=== PATIENT | female | born 1930 | race Caucasian/White ===

== ENCOUNTER → 2016-09-09 | Outpatient (CLI) | payer MEDICARE, OTHER ==
--- NOTE | 2016-09-10 03:23 | HKNOTE ---
DATE OF SERVICE: 09/09/2016 The patient comes in for preoperative evaluation. She is scheduled to have a right total knee repla cement on 09/14/2016. She had been cleared for surgery by Dr. Екатерина Larose. The patient is on E liquis. Dr. Larose has indicated that the Eliquis should be discontinued 3 days prior to surgery, b ut otherwise she is cleared for surgery. The patient has not given any blood for autotransfusion. She understands the risks associated with using hospital blood. She is agreeable to using hospital blood if needed. The patient had a hip replacement performed by me about 20 years ago. She comes in with her son. N umerous questions were asked and answered. Dictated By: GORDON HERMAN/THIERNO Conf#: [id number] DID#: [id number]
== END | disposition home or self-care (01) ==
LOC: HKI 13:18
DX: Z01.818 Encounter for other preprocedural examination (principal)

== ENCOUNTER → 2016-09-17 15:25 | Inpatient (IN) | payer MEDICARE, OTHER ==
[2016-09-14] VITALS (34 sets, daily range): BP systolic 95–128; BP diastolic 50–82; PULSE 50–87; RESP 13–28; Ht 175.3 cm; Wt 67.0 kg
--- NOTE | 2016-09-14 06:53 | HPN ---
Date/Time of Note Date/Time of Note DATE: 09/14/16 TIME: 06:50 Interval H&P Admission Note Pt. seen H&P reviewed: Systems changes noted below Patient Primary Medical Doctor called into outpatient office yesterday evening with Positive urine culture results. Dr. Blank made aware and he has decided to continue with surgery as well as instructions to start patient on broad spectrum antibiotic. Spoke with the patient's COSTUME SHOP COORDINATOR yesterday and her Nurse Practitioner Andres at [facility] confirms Rx for Bactrim DS and Dr. Blank aware. Abx will also be provided today. Anesthesiologist Dr. Mercer also aware of UTI. We will proceed with TKA per Dr. Blank. LAINA VINSON PA-C Sep 14, 2016 06:53
--- NOTE | 2016-09-14 12:04 | PDOCDIS ---
Discharge Instructions DIAGNOSIS Discharge Diagnosis Status post right total knee replacement CONDITION Patient Condition: Stable HOME CARE INSTRUCTIONS: Diet Instructions: Regular ACTIVITY: Activity Restrictions: Slowly Increase Activity Rest between Activity Avoid heavy lifting No Sexual Activity Do not Drive Do not operate Machinery Do not operate Power Tool Avoid Heavy Housework Keep Limb Elevated (While at rest with ice modalities.) Weight Bearing (As tolerated with front-wheeled walker.) Bathing Restrictions: Shower (Using Tegaderm with pad. Apply prior to shower. Let air dry after shower and dab dry. May remove after shower. Repeat the steps each day until kinsey are removed around 10 days postoperatively.) FOLLOW UP/APPOINTMENTS Follow-up Plan October 05, 2016 at 2:15 PM in outpatient clinic. LAINA VINSON PA-C Sep 14, 2016 12:04
[2016-09-14] MEDS: ACETAMINOPHEN 1000MG/100ML IV 100 ML IVPB SCH ×2 (12:41→20:36)
[2016-09-14] MEDS: CEFAZOLIN 1 GM/50 ML (PMX) 50 ML IVPB SCH ×2 (12:42→20:58)
--- NOTE | 2016-09-14 15:09 | RADRPT ---
PROCEDURE: XR right knee CLINICAL INDICATION: Right knee intraoperative evaluation TECHNIQUE: 2 images of the right knee COMPARISON: Radiographs of the right knee April 23, 2014 FINDINGS: Intraoperative images show right knee total arthroplasty with long tibial stem in progress. There i s soft tissue swelling and gas. IMPRESSION: Right knee total arthroplasty in progress. RPTAT: UU .Sanford Hay MD, MD Date Time Electronically viewed and signed by .Sanford Hay MD, on 09/14/2016 15:09 .K/
--- NOTE | 2016-09-14 15:09 | RADRPT ---
PROCEDURE: XR Knee. CLINICAL INDICATION: Postoperative evaluation right knee TECHNIQUE: 3 images of the right knee are available for review. COMPARISON: None available FINDINGS: There is a total right knee arthroplasty in anatomic alignment. There is no acute fracture. Ther e is anterior soft tissue swelling and gas with anterior kinsey. There is an anterior drain. IMPRESSION: Recent total right knee arthroplasty as above. RPTAT: UU .Sanford Hay MD, MD Date Time Electronically viewed and signed by .Sanford Hay MD, MD on 09/14/2016 15:08 .K/
[2016-09-14] MEDS: DEXTROSE 5%-LR 1,000 ML IV SCH (15:28)
[2016-09-14] MEDS: ONDANSETRON 4 MG INJ IV SCH (18:00)
--- NOTE | 2016-09-14 18:18 | CONS ---
Date/Time of Note Date/Time of Note DATE: 09/14/16 TIME: 18:04 Assessment/Plan Assessment/Plan Problems: (1) Essential (primary) hypertension Status: Chronic Comment: Cont. losartan, metoprolol, amlodipine. Monitor BP while in house. (2) Hyperlipidemia Status: Chronic Comment: Cont. statin (3) Personal history of pulmonary embolism Status: Chronic Comment: D/w ortho when it is appropriate to resume anticoagulation (4) Urge incontinence Status: Chronic Comment: Resume oxybutynin once pt. has spencer d/c'ed and able to urinate on her own (5) Dependent edema Status: Chronic Comment: Resume furosemide tomorrow (6) Osteoarthritis of right knee Status: Resolved Comment: Defer to primary team (7) Aftercare following right knee joint replacement surgery Status: Acute Comment: Doing well POD#0. Defer to primary team for management of pain and PT. Will monitor for medical issues should they arise. Consultation Date/Type/Reason Admit Date/Time Sep 14, 2016 at 05:22 Date of Consultation: Sep 14, 2016 Type of Consultation: Medicine Reason for Consultation Medical Management Referring Provider: GORDON ALEMAN MD Hx of Present Illness Pt. in [facility] until several years ago when she went to ortho to have right knee evaluated for being out of alignment. Foot pointed one way and knee pointed the other. Pt. diagnosed w/ meniscal tear. Had arthroscopy for this but problem did not entirely fix. [place] that surgeon was trying to get two surgeries out of her. Changed insurance to be able to see Dr. Aleman who had done her hip years before w/ success. Began seeing him 2 y. ago. He has followed her for a time. Pt. has not been having pain. However, 1 year ago had a fall in a parking lot and injured her knee. Hospitalized briefly. Subsequently w/ back pain on d/c but XR were negative. Sent home but the next day had SOB and was found to have pulmonary embolus. Has been on anti- coagulant ever since. Now as of more recently knee has alignment has bothered her more. She felt she would not be in as good health as she is in now. Conferred w/ Dr. Aleman who agreed to perform R TKA today. Pt. doing well POD#0. Constitutional: improved, no complaints Eyes: no complaints ENT: no complaints Respiratory: no complaints Cardiovascular: no complaints Gastrointestinal: No decreased appetite (hungry) Genitourinary: no complaints Musculoskeletal: bone/joint pain (minimal) Neurologic: no complaints Psychological: nl mood/affect, no complaints Past Medical History Medical History: diverticulitis, high cholesterol, hypertension, other ( pulmonary embolus) Past Surgical History Past Surgical Hx: bowel resection (sigmoid for ), other (R NABIL, R knee arthroscopy, tonsillectomy, ) Family History Significant Family History: no pertinent family hx (denies) Social History b. [place], college grad w/ subsequent masters in education, ret'd hs teacher, , 3 children Alcohol Use: rarely Smoking Status: Former smoker (10 years, social, quit 56 y. ago) Drug Use: none Exam/Review of Systems Vital Signs Vitals VS - Last 72 Hours, by Label Date Time Temp Pulse Resp B/P Pulse Ox O2 Delivery O2 Flow Rate FiO2 09/14/16 16:05 53 15 122/61 Nasal Cannula 2.0 09/14/16 15:35 50 15 114/65 Nasal Cannula 2.0 09/14/16 15:05 54 16 110/65 Nasal Cannula 2.0 09/14/16 14:50 15 105/74 Nasal Cannula 2.0 09/14/16 14:35 52 14 99/54 Nasal Cannula 2.0 09/14/16 14:20 97.5 53 21 119/54 Nasal Cannula 2.0 09/14/16 14:06 110/64 Nasal Cannula 3.0 09/14/16 13:59 52 21 104/52 93 Nasal Cannula 3.0 09/14/16 13:54 64 27 123/58 96 Nasal Cannula 3.0 09/14/16 13:49 54 13 101/56 97 Nasal Cannula 3.0 09/14/16 13:44 52 13 98/53 96 Nasal Cannula 3.0 09/14/16 13:39 56 13 95/52 97 Nasal Cannula 3.0 09/14/16 13:34 58 21 109/51 97 Nasal Cannula 3.0 09/14/16 13:29 54 16 115/50 95 Nasal Cannula 3.0 09/14/16 13:24 60 17 102/55 97 Nasal Cannula 3.0 09/14/16 13:19 52 14 102/51 99 Nasal Cannula 3.0 09/14/16 13:14 54 15 99/51 96 Nasal Cannula 3.0 09/14/16 13:09 68 23 102/55 96 Nasal Cannula 3.0 09/14/16 13:04 50 19 108/63 96 Nasal Cannula 3.0 09/14/16 12:59 64 22 112/59 96 Nasal Cannula 3.0 09/14/16 12:54 74 27 113/50 96 Nasal Cannula 09/14/16 12:49 74 28 103/71 96 Nasal Cannula 09/14/16 12:44 72 24 100/82 97 Nasal Cannula 09/14/16 12:43 100/57 Nasal Cannula 09/14/16 12:39 68 20 117/57 94 Nasal Cannula 09/14/16 12:34 62 19 96/54 97 Nasal Cannula 09/14/16 12:29 72 17 110/69 96 Nasal Cannula 09/14/16 12:24 66 15 100/54 92 Nasal Cannula 09/14/16 12:19 110/66 100 Mask 09/14/16 12:18 110/66 100 Mask 09/14/16 12:03 98.6 09/14/16 11:56 98.0 81 18 103/54 100 Mask 09/14/16 06:00 97.9 87 18 128/72 98 Room Air Vital Signs Date Time Temp Pulse Resp B/P Pulse Ox O2 Delivery O2 Flow Rate FiO2 09/14/16 16:05 53 15 122/61 Nasal Cannula 2.0 09/14/16 14:20 97.5 09/14/16 13:59 93 Exam Constitutional: alert, oriented, well developed Psych: nl mood/affect, no complaints Eyes: EOMI, PERRL, nl conjunctiva, nl lids, nl sclera ENMT: mucosa pink and moist, nl external ears & nose Neck: non-tender, supple, No bruits, No masses, No thyromegaly Respiratory: clear to auscultation, normal air movement Cardiovascular: nl pulses, regular rate and rhythm, No edema, No murmurs/extra sounds, No rub Gastrointestinal: bowel sounds, nl liver, spleen, non-tender, soft, No mass, No rebound or guarding Musculoskeletal: nl extremities to inspection Extremities: normal pulses, No clubbing, No cyanosis, No edema Neurological: TIRE REPAIRER II-XII intact, nl mental status, nl speech, nl strength Medications Medications Current Medications Sodium Chloride/ Tranexamic Acid INTRA-OP IRR ; Start 09/14/16 at 06:00 Ropivacaine 60 ml/ Morphine Sulfate 4 mg/Clonidine 100 mcg/Ketorolac Tromethamine 30 mg/Vancomycin HCl 500 mg/Sodium Chloride 50 ml INTRA-OP INJ ; Start 09/14/16 at 06:00 Dextrose/Lactated Ringer's (D5-Lr) 1,000 ml @ 80 mls/hr [id number] IV Last administered on 09/14/16 15:28; Admin Dose 80 MLS/HR; Start 09/14/16 at 11:53; Stop 09/15/16 at 09:00 Hydromorphone HCl (Dilaudid TEST DEVELOPER) Q4PCA PRN IV SEVERE PAIN 8-10; Start at 12:00; Stop 09/15/16 at 11:59 Meperidine HCl (Demerol TEST DEVELOPER) Q4PCA PRN IV SEVERE PAIN 8-10; Start 09/14/16 at 12:00; Stop 09/15/16 at 09:00 Oxycodone HCl (Roxicodone) 20 mg Q3H PRN PO PAIN LEVEL 8-10; Start 09/15/16 at 09:00 Oxycodone HCl (Roxicodone) 10 mg Q3H PRN PO PAIN LEVEL 4-7; Start 09/15/16 at 09:00 Oxycodone HCl 5 mg 5 mg Q3H PRN PO PAIN LEVEL 1-3; Start 09/15/16 at 09:00 Acetaminophen (Ofirmev 1000mg/ 100ml Iv) 100 ml @ 400 mls/hr Q8H IVPB Last administered on 09/14/16 12:41; Admin Dose 400 MLS/HR; Start 09/14/16 at 12:00 ; Stop 09/16/16 at 04:14 Zolpidem Tartrate (Ambien) 5 mg HS PRN PO INSOMNIA; Start 09/14/16 at 12:00 Ondansetron HCl 4 mg 4 mg Q6H IV ; Start 09/14/16 at 12:00; Stop 09/15/16 at 06: 01 Cefazolin Sodium (Ancef 1 Gm/50 ml (Pmx)) 50 ml @ 100 mls/hr Q8H IVPB Last administered on 6/27/17at 12:42; Admin Dose 100 MLS/HR; Start 09/14/16 at 12:00 ; Stop 09/15/16 at 04:29 Miscellaneous Information (Note) NOTE XX ; Start 09/14/16 at 12:00 Aspirin (Ecotrin) 325 mg BID PO ; Start 09/15/16 at 09:00 Celecoxib (Celebrex) 200 mg BID PO ; Start 09/15/16 at 09:00 Dexamethasone (Decadron) 4 mg DAILY@07 IV ; Start 09/15/16 at 07:00; Stop at 06:59 Pantoprazole (Protonix Tab) 40 mg DAILY@06 PO ; Start 09/16/16 at 06:00 Docusate Sodium/ Ferrous Fumarate (Jeffrey-Sequels) 1 tab BID PO ; Start 09/15/16 at 09:00 Docusate Sodium (Colace) 200 mg BID PO ; Start 09/15/16 at 09:00; Stop 09/18/16 at 08:59 Simethicone (Mylicon) 80 mg TID PRN PO DISTENSION/GAS/BLOATING; Start 09/14/16 at 12:00 Senna/Docusate Sodium (Senokot-S) 2 tab BID PRN PO CONSTIPATION; Start at 12:00 Magnesium Hydroxide (Milk Of Mag) 30 ml HS PRN PO CONSTIPATION; Start 09/14/16 at 12:00 Bisacodyl (Dulcolax Supp) 10 mg DAILY PRN MA CONSTIPATION; Start 09/14/16 at 12 :00 Sodium Biphosphate/ Sodium Phosphate (Fleet Enema) 133 ml DAILY PRN MA CONSTIPATION; Start 09/14/16 at 12:00 Diphenhydramine HCl (Benadryl) 25 mg Q4H PRN IM ITCHING OR RASH; Start at 12:00 Ketorolac Tromethamine (Toradol) 15 mg DAILY@06 PRN INJ ADMINSTER BY SURGEON ONLY; Start 09/15/16 at 06:00; Stop 09/19/16 at 05:59 Bupivacaine HCl/ Epinephrine Bitart (Marcaine 0.25%/ Epi (Sdv) 30 ml) 20 ml DAILY@06 PRN INJ ADMINSTER BY SURGEON ONLY; Start 09/15/16 at 06:00; Stop at 05:59 Naloxone HCl (Narcan) 0.2 mg Q2M PRN IV DECREASED REPIRATORY RATE; Start at 12:00 Amlodipine Besylate (Norvasc) 5 mg DAILY PO ; Start 09/15/16 at 09:00 Apixaban (Eliquis) 2.5 mg BID PO ; Start 09/15/16 at 09:00 Docusate Sodium (Colace) 100 mg DAILY PO ; Start 09/15/16 at 09:00 Folic Acid (Folic Acid) 1 mg DAILY PO ; Start 09/15/16 at 09:00 Furosemide (Lasix) 20 mg DAILY PO ; Start 09/15/16 at 09:00 Losartan Potassium (Cozaar) 50 mg DAILY PO ; Start 09/15/16 at 09:00 Metoprolol Tartrate (Lopressor) 50 mg DAILY PO ; Start 09/15/16 at 09:00 Polyethylene Glycol (Miralax) 17 gm DAILY PO ; Start 09/15/16 at 09:00 Cholecalciferol (Vitamin D) 2,000 unit DAILY PO ; Start 09/15/16 at 09:00 Oxybutynin Chloride (Ditropan) 5 mg BID PO ; Start 09/15/16 at 09:00 Atorvastatin Calcium (Lipitor) 40 mg HS PO ; Start 09/14/16 at 21:00 ISAIAH KENNEDY MD Sep 14, 2016 18:15
[2016-09-14] MEDS: ATORVASTATIN 40 MG TAB PO SCH (20:58)
[2016-09-15] MEDS: DEXTROSE 5%-LR 1,000 ML IV SCH (00:06)
[2016-09-15] MEDS: ACETAMINOPHEN 1000MG/100ML IV 100 ML IVPB SCH ×3 (04:08→21:21)
[2016-09-15] MEDS: CEFAZOLIN 1 GM/50 ML (PMX) 50 ML IVPB SCH (05:10)
[2016-09-15] MEDS: ONDANSETRON 4 MG INJ IV SCH ×2 (05:14)
[2016-09-15 05:25] LABS: ADD SCAN DIFF NO
[2016-09-15 05:33] LABS: BASOPHILS % 0.1 % (0.0-2.0); EOSINOPHILS % 0.1 % (0.0-7.0); HEMATOCRIT 30.4 % (37.0-47.0); HEMOGLOBIN 9.5 g/dl (12.0-16.0); LYMPHOCYTES # 0.7 10^3/ul (0.8-2.9); MEAN CORPUSCULAR HEMOGLOBIN 27.3 pg (29.0-33.0); MEAN CORPUSCULAR HGB CONC 31.3 g/dl (32.0-37.0); MEAN CORPUSCULAR VOLUME 87.4 fl (82.0-101.0); MEAN PLATELET VOLUME 10.6 fl (7.4-10.4); MONOCYTE # 0.6 10^3/ul (0.3-0.9); MONOCYTES % 6.8 % (0.0-11.0); NEUTROPHIL # 6.9 10^3/ul (1.6-7.5); NEUTROPHILS % 83.4 % (39.0-77.0); PLATELET COUNT 162 10^3/UL (140-415); RED BLOOD COUNT 3.48 10^6/ul (4.20-5.40); RED CELL DISTRIBUTION WIDTH 15.9 % (11.5-14.5); WHITE BLOOD COUNT 8.2 10^3/ul (4.8-10.8)
[2016-09-15] MEDS: DEXAMETHASONE 4 MG/ML 1 ML INJ IV SCH (06:34)
--- NOTE | 2016-09-15 07:35 | PN ---
Date/Time of Note Date/Time of Note DATE: 09/15/16 TIME: 07:32 Assessment/Plan VTE Prophylaxis VTE Prophylaxis Intervention: SCD's, other (Aspirin 325 mg) Lines/Catheters IV Catheter Type (from Nrsg): Peripheral IV Al in Place (from Nrsg): Yes Assessment/Plan Assessment/Plan -Hemovac Removed Today -Pain Cocktail Given -Pain Meds as needed -Dress change performed today -OOB with PT -ASA/SCDs for DVT Prophylaxis -Patient was on Eliquis 2.5 mg twice daily prior to being inpatient in hospital. We will defer to gas station service attendant to determine whether anticoagulation therapy should be changed either back to Eliquis, heparin or alternative form of anticoagulation in regards to her current aspirin 325 mg dose twice a day. This was also communicated to the nurse on 4 W. -Continue monitoring with Internal Medicine -Patient Stable Subjective 24 Hr Interval Summary 86-year-old female postop day 1 status post right total knee replacement. Denies any pain to the right knee. Has yet to initiate physical therapy. No complaints at this time. Exam/Review of Systems Vital Signs Vitals Vital Signs Date Time Temp Pulse Resp B/P Pulse Ox O2 Delivery O2 Flow Rate FiO2 09/14/16 23:54 98.2 56 18 108/56 97 09/14/16 16:05 Nasal Cannula 2.0 Intake and Output 09/14/16 09/14/16 09/15/16 15:00 23:00 07:00 Intake Total 3214.4 ml 676.7 ml 1550 ml Output Total 950 ml 500 ml 1100 ml Balance 2264.4 ml 176.7 ml 450 ml Exam Free Text/Dictation -Hemovac: Intact 200 cc output -Pain Cocktail Drains: Intact -Incision: Clean, Dry and Intact without any redness or drainage -5/5 Tibialis Anterior, EHL Gastrocnemius/Soleus and Peroneals -Normal Sensation -Palpable DP/PT, Capillary Refill <2 secs -No Distal Edema -Negative Tawanna Sign/No calf pain -Toes Freely Movable Constitutional: alert, oriented, well developed Results Result Diagram: 09/15/16 0445 LAINA VINSON PA-C Sep 15, 2016 07:35
[2016-09-15 08:15] VITALS: BP 135/61; RESP 20
[2016-09-15] MEDS: ASPIRIN (EC) 325 MG TAB PO SCH ×2 (09:00→21:00)
[2016-09-15] MEDS: FOLIC ACID 1 MG TAB PO SCH (09:46)
[2016-09-15] MEDS: CHOLECALCIFEROL 2,000 UNIT CAP PO SCH (09:46)
[2016-09-15] MEDS: CELECOXIB 200 MG CAP PO SCH ×2 (09:46→21:23)
[2016-09-15] MEDS: DOCUSATE SODIUM 100 MG CAP PO SCH ×2 (09:46→21:23)
[2016-09-15] MEDS: AMLODIPINE 10 MG TAB PO SCH (09:47)
[2016-09-15] MEDS: FUROSEMIDE 20 MG TAB PO SCH (09:47)
[2016-09-15] MEDS: FERROUS FUMARATE (SR) TAB PO SCH ×2 (09:47→21:21)
[2016-09-15] MEDS: OXYBUTYNIN 5 MG TAB PO SCH ×2 (09:47→21:23)
[2016-09-15] MEDS: METOPROLOL 50 MG TAB PO SCH (09:48)
[2016-09-15] MEDS: POLYETHYLENE GLYCOL 17 GM PACKET PO SCH (09:48)
[2016-09-15] MEDS: LOSARTAN 50 MG TAB PO SCH (09:48)
[2016-09-15] MEDS: APIXABAN 5 MG TABLET PO SCH ×2 (14:06→21:24)
[2016-09-15 20:32] VITALS: BP 130/78; RESP 18
[2016-09-15] MEDS: ATORVASTATIN 40 MG TAB PO SCH (21:23)
--- NOTE | 2016-09-15 21:25 | CONS ---
Date/Time of Note Date/Time of Note DATE: 09/15/16 TIME: 21:19 Assessment/Plan Assessment/Plan Problems: (1) Atrial fibrillation Status: Chronic Comment: Pt. did not mention this yesterday and HR was regular on exam. However, today's exam this is apparent. Pt. admits h/o this rhythm. However, rate controlled and pt. already on Eliquis. No cardiology consult necessary. (2) Personal history of pulmonary embolism Status: Chronic Comment: D/w PMD who agrees cont. Eliquis (3) Essential (primary) hypertension Status: Chronic Comment: BP controlled. Cont. anti-hypertensives (4) Hyperlipidemia Status: Chronic Comment: Cont. statin (5) Urge incontinence Status: Chronic Comment: Cont. oxybutynin (6) Aftercare following right knee joint replacement surgery Status: Acute Comment: Doing well POD#1. Cont. PT and pain management. Will follow. Consultation Date/Type/Reason Admit Date/Time Sep 14, 2016 at 05:22 Initial Consult Date 09/14/16 Type of Consultation: Medicine Reason for Consultation Medical management Referring Provider: GORDON ALEMAN MD 24 HR Interval Summary Constitutional: improved, no complaints Detailed Summary Respiratory: no complaints Cardiovascular: no complaints Gastrointestinal: no complaints Genitourinary: no complaints Musculoskeletal: bone/joint pain (minimal) Neurologic: no complaints Psychological: anxiety (a little overwhelmed with all of the attention from different hospital services.) Exam/Review of Systems Vital Signs Vitals VS - Last 72 Hours, by Label Date Time Temp Pulse Resp B/P Pulse Ox O2 Delivery O2 Flow Rate FiO2 09/15/16 20:32 98.6 78 18 130/78 96 09/15/16 08:15 97.4 61 20 135/61 94 09/14/16 23:54 98.2 56 18 108/56 97 09/14/16 20:13 97.6 51 20 118/57 98 09/14/16 16:05 53 15 122/61 Nasal Cannula 2.0 09/14/16 15:35 50 15 114/65 Nasal Cannula 2.0 09/14/16 15:05 54 16 110/65 Nasal Cannula 2.0 09/14/16 14:50 15 105/74 Nasal Cannula 2.0 09/14/16 14:35 52 14 99/54 Nasal Cannula 2.0 09/14/16 14:20 97.5 53 21 119/54 Nasal Cannula 2.0 09/14/16 14:06 110/64 Nasal Cannula 3.0 09/14/16 13:59 52 21 104/52 93 Nasal Cannula 3.0 09/14/16 13:54 64 27 123/58 96 Nasal Cannula 3.0 09/14/16 13:49 54 13 101/56 97 Nasal Cannula 3.0 09/14/16 13:44 52 13 98/53 96 Nasal Cannula 3.0 09/14/16 13:39 56 13 95/52 97 Nasal Cannula 3.0 09/14/16 13:34 58 21 109/51 97 Nasal Cannula 3.0 09/14/16 13:29 54 16 115/50 95 Nasal Cannula 3.0 09/14/16 13:24 60 17 102/55 97 Nasal Cannula 3.0 09/14/16 13:19 52 14 102/51 99 Nasal Cannula 3.0 09/14/16 13:14 54 15 99/51 96 Nasal Cannula 3.0 09/14/16 13:09 68 23 102/55 96 Nasal Cannula 3.0 09/14/16 13:04 50 19 108/63 96 Nasal Cannula 3.0 09/14/16 12:59 64 22 112/59 96 Nasal Cannula 3.0 09/14/16 12:54 74 27 113/50 96 Nasal Cannula 09/14/16 12:49 74 28 103/71 96 Nasal Cannula 09/14/16 12:44 72 24 100/82 97 Nasal Cannula 09/14/16 12:43 100/57 Nasal Cannula 09/14/16 12:39 68 20 117/57 94 Nasal Cannula 09/14/16 12:34 62 19 96/54 97 Nasal Cannula 09/14/16 12:29 72 17 110/69 96 Nasal Cannula 09/14/16 12:24 66 15 100/54 92 Nasal Cannula 09/14/16 12:19 110/66 100 Mask 09/14/16 12:18 110/66 100 Mask 09/14/16 12:03 98.6 09/14/16 11:56 98.0 81 18 103/54 100 Mask 09/14/16 06:00 97.9 87 18 128/72 98 Room Air Vital Signs Date Time Temp Pulse Resp B/P Pulse Ox O2 Delivery O2 Flow Rate FiO2 09/15/16 20:32 98.6 78 18 130/78 96 09/14/16 16:05 Nasal Cannula 2.0 Intake and Output 09/14/16 09/14/16 09/15/16 15:00 23:00 07:00 Intake Total 3214.4 ml 676.7 ml 1550 ml Output Total 950 ml 500 ml 1100 ml Balance 2264.4 ml 176.7 ml 450 ml Exam Constitutional: alert, frail, oriented Psych: nl mood/affect, no complaints Respiratory: clear to auscultation, normal air movement Cardiovascular: irregular rhythm, nl pulses, No edema, No murmurs/extra sounds, No regular rate and rhythm, No rub Gastrointestinal: bowel sounds, nl liver, spleen, non-tender, soft, No mass, No rebound or guarding Musculoskeletal: nl extremities to inspection Extremities: normal pulses, No clubbing, No cyanosis, No edema Neurological: PERSONNEL ADVISER II-XII intact, nl mental status, nl speech, nl strength Results Result Diagram: 09/15/16 0445 Results 24 hrs Laboratory Tests Test 09/15/16 04:45 09/15/16 05:36 White Blood Count 8.2 Red Blood Count 3.48 L Hemoglobin 9.5 L Hematocrit 30.4 L Mean Corpuscular Volume 87.4 Mean Corpuscular Hemoglobin 27.3 L Mean Corpuscular Hemoglobin Concent 31.3 L Red Cell Distribution Width 15.9 H Platelet Count 162 Mean Platelet Volume 10.6 H Neutrophils % 83.4 H Lymphocytes % 9.0 L Monocytes % 6.8 Eosinophils % 0.1 Basophils % 0.1 Nucleated Red Blood Cells % 0.0 Neutrophils # 6.9 Lymphocytes # 0.7 L Monocytes # 0.6 Eosinophils # 0.0 Basophils # 0.0 Nucleated Red Blood Cells # 0.0 Lab Scanned Report REFERENCE LAB Medications Medications Current Medications Sodium Chloride/ Tranexamic Acid INTRA-OP IRR ; Start 09/14/16 at 06:00 Ropivacaine/ Morphine Sulfate/ Clonidine/ Ketorolac Tromethamine/ Vancomycin HCl / Sodium Chloride (Naropin 0.2%/ Duramorph/ Duraclon/Toradol/ Vancocin/NS) INTRA-OP INJ ; Start 09/14/16 at 06:00 Oxycodone HCl (Roxicodone) 20 mg Q3H PRN PO PAIN LEVEL 8-10; Start 09/15/16 at 09:00 Oxycodone HCl (Roxicodone) 10 mg Q3H PRN PO PAIN LEVEL 4-7; Start 09/15/16 at 09:00 Oxycodone HCl 5 mg 5 mg Q3H PRN PO PAIN LEVEL 1-3; Start 09/15/16 at 09:00 Acetaminophen (Ofirmev 1000mg/ 100ml Iv) 100 ml @ 400 mls/hr Q8H IVPB Last administered on 09/15/16 14:06; Admin Dose 400 MLS/HR; Start 09/14/16 at 12:00 ; Stop 09/16/16 at 04:14 Zolpidem Tartrate (Ambien) 5 mg HS PRN PO INSOMNIA; Start 09/14/16 at 12:00 Miscellaneous Information (Note) NOTE XX ; Start 09/14/16 at 12:00 Aspirin (Ecotrin) 325 mg BID PO ; Start 09/15/16 at 09:00 Celecoxib (Celebrex) 200 mg BID PO Last administered on 09/15/16 09:46; Admin Dose 200 MG; Start 09/15/16 at 09:00 Dexamethasone (Decadron) 4 mg DAILY@07 IV Last administered on 09/15/16 06:34 ; Admin Dose 4 MG; Start 09/15/16 at 07:00; Stop 09/18/16 at 06:59 Pantoprazole (Protonix Tab) 40 mg DAILY@06 PO ; Start 09/16/16 at 06:00 Docusate Sodium/ Ferrous Fumarate (Jeffrey-Sequels) 1 tab BID PO Last administered on 09/15/16 09:47; Admin Dose 1 TAB; Start 09/15/16 at 09:00 Docusate Sodium (Colace) 200 mg BID PO Last administered on 09/15/16 09:46; Admin Dose 200 MG; Start 09/15/16 at 09:00; Stop 09/18/16 at 08:59 Simethicone (Mylicon) 80 mg TID PRN PO DISTENSION/GAS/BLOATING; Start 09/14/16 at 12:00 Senna/Docusate Sodium (Senokot-S) 2 tab BID PRN PO CONSTIPATION; Start at 12:00 Magnesium Hydroxide (Milk Of Mag) 30 ml HS PRN PO CONSTIPATION; Start 09/14/16 at 12:00 Bisacodyl (Dulcolax Supp) 10 mg DAILY PRN SD CONSTIPATION; Start 09/14/16 at 12 :00 Sodium Biphosphate/ Sodium Phosphate (Fleet Enema) 133 ml DAILY PRN SD CONSTIPATION; Start 09/14/16 at 12:00 Diphenhydramine HCl (Benadryl) 25 mg Q4H PRN IM ITCHING OR RASH; Start at 12:00 Ketorolac Tromethamine (Toradol) 15 mg DAILY@06 PRN INJ ADMINSTER BY SURGEON ONLY; Start 09/15/16 at 06:00; Stop 09/19/16 at 05:59 Bupivacaine HCl/ Epinephrine Bitart (Marcaine 0.25%/ Epi (Sdv) 30 ml) 20 ml DAILY@06 PRN INJ ADMINSTER BY SURGEON ONLY; Start 09/15/16 at 06:00; Stop at 05:59 Naloxone HCl (Narcan) 0.2 mg Q2M PRN IV DECREASED REPIRATORY RATE; Start at 12:00 Amlodipine Besylate (Norvasc) 5 mg DAILY PO Last administered on 09/15/16 09: 47; Admin Dose 5 MG; Start 09/15/16 at 09:00 Apixaban (Eliquis) 2.5 mg BID PO Last administered on 09/15/16 14:06; Admin Dose 2.5 MG; Start 09/15/16 at 09:00 Docusate Sodium (Colace) 100 mg DAILY PO ; Start 09/15/16 at 09:00 Folic Acid (Folic Acid) 1 mg DAILY PO Last administered on 09/15/16 09:46; Admin Dose 1 MG; Start 09/15/16 at 09:00 Furosemide (Lasix) 20 mg DAILY PO Last administered on 09/15/16 09:47; Admin Dose 20 MG; Start 09/15/16 at 09:00 Losartan Potassium (Cozaar) 50 mg DAILY PO Last administered on 09/15/16 09:48 ; Admin Dose 50 MG; Start 09/15/16 at 09:00 Metoprolol Tartrate (Lopressor) 50 mg DAILY PO Last administered on 09/15/16 09:48; Admin Dose 50 MG; Start 09/15/16 at 09:00 Polyethylene Glycol (Miralax) 17 gm DAILY PO Last administered on 09/15/16 09: 48; Admin Dose 17 GM; Start 09/15/16 at 09:00 Cholecalciferol (Vitamin D) 2,000 unit DAILY PO Last administered on 09/15/16 09:46; Admin Dose 2,000 UNIT; Start 09/15/16 at 09:00 Oxybutynin Chloride (Ditropan) 5 mg BID PO Last administered on 09/15/16 09:47 ; Admin Dose 5 MG; Start 09/15/16 at 09:00 Atorvastatin Calcium (Lipitor) 40 mg HS PO Last administered on 09/14/16 20:58 ; Admin Dose 40 MG; Start 09/14/16 at 21:00 ISAIAH KENNEDY MD Sep 15, 2016 21:25
[2016-09-16] MEDS: ACETAMINOPHEN 1000MG/100ML IV 100 ML IVPB SCH (04:00)
[2016-09-16] MEDS: DEXAMETHASONE 4 MG/ML 1 ML INJ IV SCH (06:34)
[2016-09-16] MEDS: PANTOPRAZOLE (EC) 40 MG TAB PO SCH (06:34)
[2016-09-16 06:52] LABS: ADD SCAN DIFF NO
[2016-09-16 07:00] LABS: BASOPHILS % 0.3 % (0.0-2.0); EOSINOPHILS # 0.1 10^3/ul (0.0-0.5); EOSINOPHILS % 1.2 % (0.0-7.0); HEMATOCRIT 30.6 % (37.0-47.0); HEMOGLOBIN 9.8 g/dl (12.0-16.0); LYMPHOCYTES # 1.5 10^3/ul (0.8-2.9); LYMPHOCYTES % 16.3 % (15.0-51.0); MEAN CORPUSCULAR HEMOGLOBIN 27.6 pg (29.0-33.0); MEAN CORPUSCULAR VOLUME 86.2 fl (82.0-101.0); MEAN PLATELET VOLUME 10.5 fl (7.4-10.4); MONOCYTE # 0.6 10^3/ul (0.3-0.9); MONOCYTES % 6.2 % (0.0-11.0); NEUTROPHIL # 6.7 10^3/ul (1.6-7.5); NEUTROPHILS % 75.2 % (39.0-77.0); PLATELET COUNT 172 10^3/UL (140-415); RED BLOOD COUNT 3.55 10^6/ul (4.20-5.40); WHITE BLOOD COUNT 8.9 10^3/ul (4.8-10.8)
[2016-09-16 08:18] VITALS: BP 137/62; RESP 18
[2016-09-16] MEDS: OXYBUTYNIN 5 MG TAB PO SCH ×2 (09:34→21:46)
[2016-09-16] MEDS: CHOLECALCIFEROL 2,000 UNIT CAP PO SCH (09:34)
[2016-09-16] MEDS: CELECOXIB 200 MG CAP PO SCH ×2 (09:34→21:46)
[2016-09-16] MEDS: DOCUSATE SODIUM 100 MG CAP PO SCH ×2 (09:34→21:47)
[2016-09-16] MEDS: FERROUS FUMARATE (SR) TAB PO SCH ×2 (09:34→21:47)
[2016-09-16] MEDS: APIXABAN 5 MG TABLET PO SCH ×2 (09:35→21:47)
[2016-09-16] MEDS: FOLIC ACID 1 MG TAB PO SCH (09:35)
[2016-09-16] MEDS: METOPROLOL 50 MG TAB PO SCH (09:35)
[2016-09-16] MEDS: FUROSEMIDE 20 MG TAB PO SCH (09:37)
[2016-09-16] MEDS: AMLODIPINE 10 MG TAB PO SCH (09:38)
[2016-09-16] MEDS: LOSARTAN 50 MG TAB PO SCH (09:38)
[2016-09-16] MEDS: POLYETHYLENE GLYCOL 17 GM PACKET PO SCH (09:38)
--- NOTE | 2016-09-16 11:55 | PN ---
Date/Time of Note Date/Time of Note DATE: 09/16/16 TIME: 11:53 Assessment/Plan VTE Prophylaxis VTE Prophylaxis Intervention: ambulation, SCD's, other (Currently on Eliquis 2.5 mg being monitored by internal medicine) Lines/Catheters IV Catheter Type (from Nrsg): Saline Lock Al in Place (from Nrsg): No Assessment/Plan Assessment/Plan -Hemovac Removed -Pain Cocktail Given -Pain Meds as needed -Dress change performed today -OOB with PT -ASA/SCDs for DVT Prophylaxis -Continue monitoring with Internal Medicine -Patient Stable. Likely discharge tomorrow to senior living facility. Subjective 24 Hr Interval Summary 86-year-old female postop day 2 status post right total knee arthroplasty. Pain is well controlled. Patient is up and out of bed with physical therapy. Denies any calf pain, chest pain/tightness or shortness of breath. Continues to progress well. Exam/Review of Systems Vital Signs Vitals Vital Signs Date Time Temp Pulse Resp B/P Pulse Ox O2 Delivery O2 Flow Rate FiO2 09/16/16 08:18 97.9 93 18 137/62 92 09/14/16 16:05 Nasal Cannula 2.0 Intake and Output 09/15/16 09/15/16 09/16/16 15:00 23:00 07:00 Intake Total 100 ml 1360 ml 600 ml Balance 100 ml 1360 ml 600 ml Exam Free Text/Dictation -Hemovac: Removed -Pain Cocktail Drains: Intact -Incision: Clean, Dry and Intact without any redness or drainage. Mild bruising surrounding the right knee. -5/5 Tibialis Anterior, EHL Gastrocnemius/Soleus and Peroneals -Normal Sensation -Palpable DP/PT, Capillary Refill <2 secs -No Distal Edema -Negative Tawanna Sign/No calf pain -Toes Freely Movable Constitutional: alert, oriented, well developed Results Result Diagram: 09/16/16 0623 LAINA VINSON PA-C Sep 16, 2016 11:55
--- NOTE | 2016-09-16 19:09 | CONS ---
Date/Time of Note Date/Time of Note DATE: 09/16/16 TIME: 19:06 Assessment/Plan Assessment/Plan Problems: (1) Essential (primary) hypertension Status: Chronic Comment: BP well controlled. Cont. current regimen (2) Hyperlipidemia Status: Chronic Comment: Cont. statin (3) Personal history of pulmonary embolism Status: Chronic Comment: Cont. eliquis (4) Atrial fibrillation Status: Chronic Comment: Pt. on eliquis, rate controlled (5) Urge incontinence Status: Chronic Comment: On oxybutynin (6) Aftercare following right knee joint replacement surgery Status: Acute Comment: Doing well POD#2. Ambulating. Pain-free. D/c plan is [facility] for rehab. Likely tomorrow. Consultation Date/Type/Reason Admit Date/Time Sep 14, 2016 at 05:22 Initial Consult Date 09/14/16 Type of Consultation: Medicine Reason for Consultation Medical management Referring Provider: GORDON ALEMAN MD 24 HR Interval Summary Constitutional: improved, no complaints Detailed Summary Respiratory: no complaints Cardiovascular: no complaints Gastrointestinal: no complaints Genitourinary: no complaints Musculoskeletal: No bone/joint pain Neurologic: no complaints Exam/Review of Systems Vital Signs Vitals VS - Last 72 Hours, by Label Date Time Temp Pulse Resp B/P Pulse Ox O2 Delivery O2 Flow Rate FiO2 09/16/16 08:18 97.9 93 18 137/62 92 09/15/16 20:32 98.6 78 18 130/78 96 09/15/16 08:15 97.4 61 20 135/61 94 09/14/16 23:54 98.2 56 18 108/56 97 09/14/16 20:13 97.6 51 20 118/57 98 09/14/16 16:05 53 15 122/61 Nasal Cannula 2.0 09/14/16 15:35 50 15 114/65 Nasal Cannula 2.0 09/14/16 15:05 54 16 110/65 Nasal Cannula 2.0 09/14/16 14:50 15 105/74 Nasal Cannula 2.0 09/14/16 14:35 52 14 99/54 Nasal Cannula 2.0 09/14/16 14:20 97.5 53 21 119/54 Nasal Cannula 2.0 09/14/16 14:06 110/64 Nasal Cannula 3.0 09/14/16 13:59 52 21 104/52 93 Nasal Cannula 3.0 09/14/16 13:54 64 27 123/58 96 Nasal Cannula 3.0 09/14/16 13:49 54 13 101/56 97 Nasal Cannula 3.0 09/14/16 13:44 52 13 98/53 96 Nasal Cannula 3.0 09/14/16 13:39 56 13 95/52 97 Nasal Cannula 3.0 09/14/16 13:34 58 21 109/51 97 Nasal Cannula 3.0 09/14/16 13:29 54 16 115/50 95 Nasal Cannula 3.0 09/14/16 13:24 60 17 102/55 97 Nasal Cannula 3.0 09/14/16 13:19 52 14 102/51 99 Nasal Cannula 3.0 09/14/16 13:14 54 15 99/51 96 Nasal Cannula 3.0 09/14/16 13:09 68 23 102/55 96 Nasal Cannula 3.0 09/14/16 13:04 50 19 108/63 96 Nasal Cannula 3.0 09/14/16 12:59 64 22 112/59 96 Nasal Cannula 3.0 09/14/16 12:54 74 27 113/50 96 Nasal Cannula 09/14/16 12:49 74 28 103/71 96 Nasal Cannula 09/14/16 12:44 72 24 100/82 97 Nasal Cannula 09/14/16 12:43 100/57 Nasal Cannula 09/14/16 12:39 68 20 117/57 94 Nasal Cannula 09/14/16 12:34 62 19 96/54 97 Nasal Cannula 09/14/16 12:29 72 17 110/69 96 Nasal Cannula 09/14/16 12:24 66 15 100/54 92 Nasal Cannula 09/14/16 12:19 110/66 100 Mask 09/14/16 12:18 110/66 100 Mask 09/14/16 12:03 98.6 09/14/16 11:56 98.0 81 18 103/54 100 Mask 09/14/16 06:00 97.9 87 18 128/72 98 Room Air Vital Signs Date Time Temp Pulse Resp B/P Pulse Ox O2 Delivery O2 Flow Rate FiO2 09/16/16 08:18 97.9 93 18 137/62 92 09/14/16 16:05 Nasal Cannula 2.0 Intake and Output 09/15/16 09/15/1617 15:00 23:00 07:00 Intake Total 100 ml 1360 ml 600 ml Balance 100 ml 1360 ml 600 ml Exam Constitutional: alert, oriented, well developed Psych: nl mood/affect, no complaints Respiratory: clear to auscultation, normal air movement Cardiovascular: irregular rhythm, nl pulses, No edema, No murmurs/extra sounds, No regular rate and rhythm, No rub Gastrointestinal: bowel sounds, nl liver, spleen, non-tender, soft, No mass, No rebound or guarding Musculoskeletal: nl extremities to inspection Extremities: normal pulses, No clubbing, No cyanosis, No edema Neurological: CLINICAL EDUCATION ACADEMIC COORDINATOR II-XII intact, nl mental status, nl speech, nl strength Results Result Diagram: 09/16/16 06 Results 24 hrs Laboratory Tests Test 09/16/16 06:23 White Blood Count 8.9 Red Blood Count 3.55 L Hemoglobin 9.8 L Hematocrit 30.6 L Mean Corpuscular Volume 86.2 Mean Corpuscular Hemoglobin 27.6 L Mean Corpuscular Hemoglobin Concent 32.0 Red Cell Distribution Width 16.0 H Platelet Count 172 Mean Platelet Volume 10.5 H Neutrophils % 75.2 Lymphocytes % 16.3 Monocytes % 6.2 Eosinophils % 1.2 Basophils % 0.3 Nucleated Red Blood Cells % 0.0 Neutrophils # 6.7 Lymphocytes # 1.5 Monocytes # 0.6 Eosinophils # 0.1 Basophils # 0.0 Nucleated Red Blood Cells # 0.0 Medications Medications Current Medications Oxycodone HCl (Roxicodone) 20 mg Q3H PRN PO PAIN LEVEL 8-10; Start 09/15/16 at 09:00 Oxycodone HCl (Roxicodone) 10 mg Q3H PRN PO PAIN LEVEL 4-7; Start 09/15/16 at 09:00 Oxycodone HCl (Roxicodone) 5 mg Q3H PRN PO PAIN LEVEL 1-3; Start 09/15/16 at 09 :00 Zolpidem Tartrate (Ambien) 5 mg HS PRN PO INSOMNIA; Start 09/14/16 at 12:00 Miscellaneous Information (Note) NOTE XX ; Start 09/14/16 at 12:00 Celecoxib (Celebrex) 200 mg BID PO Last administered on 09/16/16t 09:34; Admin Dose 200 MG; Start 09/15/16 at 09:00 Dexamethasone (Decadron) 4 mg DAILY@07 IV Last administered on 09/16/16 06:34 ; Admin Dose 4 MG; Start 09/15/16 at 07:00; Stop 09/18/16 at 06:59 Pantoprazole (Protonix Tab) 40 mg DAILY@06 PO Last administered on 09/16/16 06 :34; Admin Dose 40 MG; Start 09/16/16 at 06:00 Docusate Sodium/ Ferrous Fumarate (Jeffrey-Sequels) 1 tab BID PO Last administered on 09/16/16 09:34; Admin Dose 1 TAB; Start 09/15/16 at 09:00 Docusate Sodium (Colace) 200 mg BID PO Last administered on 09/16/16 09:34; Admin Dose 200 MG; Start 09/15/16 at 09:00; Stop 09/18/16 at 08:59 Simethicone (Mylicon) 80 mg TID PRN PO DISTENSION/GAS/BLOATING; Start 09/14/16 at 12:00 Senna/Docusate Sodium (Senokot-S) 2 tab BID PRN PO CONSTIPATION; Start at 12:00 Magnesium Hydroxide (Milk Of Mag) 30 ml HS PRN PO CONSTIPATION; Start 09/14/16 at 12:00 Bisacodyl (Dulcolax Supp) 10 mg DAILY PRN DC CONSTIPATION; Start 09/14/16 at 12 :00 Sodium Biphosphate/ Sodium Phosphate (Fleet Enema) 133 ml DAILY PRN DC CONSTIPATION; Start 09/14/16 at 12:00 Diphenhydramine HCl (Benadryl) 25 mg Q4H PRN IM ITCHING OR RASH; Start at 12:00 Ketorolac Tromethamine (Toradol) 15 mg DAILY@06 PRN INJ ADMINSTER BY SURGEON ONLY; Start 09/15/16 at 06:00; Stop 09/19/16 at 05:59 Bupivacaine HCl/ Epinephrine Bitart (Marcaine 0.25%/ Epi (Sdv) 30 ml) 20 ml DAILY@06 PRN INJ ADMINSTER BY SURGEON ONLY; Start 09/15/16 at 06:00; Stop at 05:59 Naloxone HCl (Narcan) 0.2 mg Q2M PRN IV DECREASED REPIRATORY RATE; Start at 12:00 Amlodipine Besylate (Norvasc) 5 mg DAILY PO Last administered on 09/16/16 09: 38; Admin Dose 5 MG; Start 09/15/16 at 09:00 Apixaban (Eliquis) 2.5 mg BID PO Last administered on 09/16/16 09:35; Admin Dose 2.5 MG; Start 09/15/16 at 09:00 Folic Acid (Folic Acid) 1 mg DAILY PO Last administered on 09/16/16 09:35; Admin Dose 1 MG; Start 09/15/16 at 09:00 Furosemide (Lasix) 20 mg DAILY PO Last administered on 09/16/16 09:37; Admin Dose 20 MG; Start 09/15/16 at 09:00 Losartan Potassium (Cozaar) 50 mg DAILY PO Last administered on 09/16/16 09:38 ; Admin Dose 50 MG; Start 09/15/16 at 09:00 Metoprolol Tartrate (Lopressor) 50 mg DAILY PO Last administered on 09/16/16 09:35; Admin Dose 50 MG; Start 09/15/16 at 09:00 Polyethylene Glycol (Miralax) 17 gm DAILY PO Last administered on 09/16/16 09: 38; Admin Dose 17 GM; Start 09/15/16 at 09:00 Cholecalciferol (Vitamin D) 2,000 unit DAILY PO Last administered on 09/16/16 09:34; Admin Dose 2,000 UNIT; Start 09/15/16 at 09:00 Oxybutynin Chloride (Ditropan) 5 mg BID PO Last administered on 09/16/16 09:34 ; Admin Dose 5 MG; Start 09/15/16 at 09:00 Atorvastatin Calcium (Lipitor) 40 mg HS PO Last administered on 09/15/16 21:23 ; Admin Dose 40 MG; Start 09/14/16 at 21:00 ISAIAH KENNEDY MD Sep 16, 2016 19:09
[2016-09-16 20:48] VITALS: BP 142/66; RESP 20
[2016-09-16] MEDS: ATORVASTATIN 40 MG TAB PO SCH (21:46)
[~2016-09-17] VITALS: Ht 175.3 cm; Wt 67.0 kg
[2016-09-17 05:18] LABS: BASOPHILS % 0.5 % (0.0-2.0); EOSINOPHILS # 0.1 10^3/ul (0.0-0.5); EOSINOPHILS % 1.5 % (0.0-7.0); HEMATOCRIT 28.8 % (37.0-47.0); HEMOGLOBIN 9.1 g/dl (12.0-16.0); LYMPHOCYTES # 1.6 10^3/ul (0.8-2.9); LYMPHOCYTES % 21.6 % (15.0-51.0); MEAN CORPUSCULAR HEMOGLOBIN 27.1 pg (29.0-33.0); MEAN CORPUSCULAR HGB CONC 31.6 g/dl (32.0-37.0); MEAN CORPUSCULAR VOLUME 85.7 fl (82.0-101.0); MEAN PLATELET VOLUME 10.5 fl (7.4-10.4); MONOCYTE # 0.8 10^3/ul (0.3-0.9); MONOCYTES % 10.4 % (0.0-11.0); NEUTROPHIL # 4.9 10^3/ul (1.6-7.5); NEUTROPHILS % 65.2 % (39.0-77.0); PLATELET COUNT 164 10^3/UL (140-415); RED BLOOD COUNT 3.36 10^6/ul (4.20-5.40); RED CELL DISTRIBUTION WIDTH 16.4 % (11.5-14.5); WHITE BLOOD COUNT 7.6 10^3/ul (4.8-10.8)
[2016-09-17] MEDS: PANTOPRAZOLE (EC) 40 MG TAB PO SCH (05:38)
[2016-09-17 06:01] LABS: ADD SCAN DIFF NO
[2016-09-17] MEDS: DEXAMETHASONE 4 MG/ML 1 ML INJ IV SCH (06:13)
[2016-09-17 07:00] VITALS: BP 137/97; RESP 20
[2016-09-17] MEDS: FERROUS FUMARATE (SR) TAB PO SCH (09:28)
[2016-09-17] MEDS: POLYETHYLENE GLYCOL 17 GM PACKET PO SCH (09:28)
[2016-09-17] MEDS: OXYBUTYNIN 5 MG TAB PO SCH (09:28)
[2016-09-17] MEDS: DOCUSATE SODIUM 100 MG CAP PO SCH (09:28)
[2016-09-17] MEDS: APIXABAN 5 MG TABLET PO SCH (09:29)
[2016-09-17] MEDS: CELECOXIB 200 MG CAP PO SCH (09:29)
[2016-09-17] MEDS: CHOLECALCIFEROL 2,000 UNIT CAP PO SCH (09:29)
[2016-09-17] MEDS: FOLIC ACID 1 MG TAB PO SCH (09:29)
[2016-09-17] MEDS: METOPROLOL 50 MG TAB PO SCH (09:30)
[2016-09-17] MEDS: FUROSEMIDE 20 MG TAB PO SCH (09:30)
[2016-09-17] MEDS: LOSARTAN 50 MG TAB PO SCH (09:30)
[2016-09-17] MEDS: AMLODIPINE 10 MG TAB PO SCH (09:31)
--- NOTE | 2016-09-17 09:50 | PN ---
Date/Time of Note Date/Time of Note DATE: 09/17/16 TIME: 09:46 Assessment/Plan VTE Prophylaxis VTE Prophylaxis Intervention: ambulation, SCD's, other (Eliquis 2.5 mg) Lines/Catheters IV Catheter Type (from Nrsg): Saline Lock Al in Place (from Nrsg): No Assessment/Plan Assessment/Plan -Pain Cocktail Given. Drains removed and Dermabond applied. -Pain Meds as needed -Dress change performed today -Continue with Eliquis 2.5 mg for DVT Prophylaxis. Patient was oriented pre- existing dose. -Continue monitoring as outpatient on discharge -Follow-up at scheduled postop outpatient appointment or sooner if there is any issue. -Tegaderm dressings given with specific instructions to use as outpatient to keep wound dry until kinsey are moved around 10 days. -Patient Stable -As a preventative measure due to ecchymosis surrounding the knee, Keflex 500 mg 4 times daily 7 days will be prescribed for discharge. Nurse is aware. -Discharge to [facility] Subjective 24 Hr Interval Summary 86-year-old female postop day 3 status post right total knee arthroplasty. Denies any pain to the right knee. Patient up and walking with physical therapy. Denies any complaints at this time. No calf pain, chest pain or tightness. Toes freely movable. Patient would like to be transferred to group home facility today. Constitutional: no complaints Exam/Review of Systems Vital Signs Vitals Vital Signs Date Time Temp Pulse Resp B/P Pulse Ox O2 Delivery O2 Flow Rate FiO2 09/17/16 07:00 98.7 86 20 137/97 96 09/14/16 16:05 Nasal Cannula 2.0 Intake and Output 09/16/16 09/16/16 09/17/16 15:00 23:00 07:00 Intake Total 1100 ml 340 ml Output Total 900 ml 300 ml Balance 200 ml 40 ml Exam Free Text/Dictation -Hemovac: Removed -Pain Cocktail Drains: Intact -Incision: Clean, Dry and Intact without any redness or drainage. Ecchymosis to the right knee. No tenderness to palpation. -5/5 Tibialis Anterior, EHL Gastrocnemius/Soleus and Peroneals -Normal Sensation -Palpable DP/PT, Capillary Refill <2 secs -No Distal Edema -Negative Tawanna Sign/No calf pain -Toes Freely Movable Constitutional: alert, oriented, well developed Results Result Diagram: 09/17/16 0435 LAINA VINSON PA-C Sep 17, 2016 09:50
--- NOTE | 2016-09-17 09:58 | DS ---
Date/Time of Note Date/Time of Note DATE: 09/17/16 TIME: 09:55 Discharge Summary Admission/Discharge Info Admit Date/Time Sep 14, 2016 at 05:22 Discharge Date/Time Discharge Diagnosis Status post right total knee replacement Patient Condition: Stable Hospital Course On the day of admission, the patient underwent right total knee arthroplasty Intraoperative complications: None Postoperative complications: None The patient was given prophylactic antibiotics and anticoagulants. On the day of surgery and first postoperative day patient was started on gait training and was taught usual restrictions following knee replacement Suction drain removed on the first postoperative day and the dressings were changed. The wound was found to be clean and healing well. There was no sign of infection. Pain cocktail given. Ecchymosis seen to the right knee. On the second postoperative day, patient continued with inpatient PT. Dressings were changed. Wound was found to be clean and healing well. No signs of infection. Pain cocktail given. Ecchymosis into the right knee. On the day of discharge, the wound was clean and healing well; there was no sign of infection. Ecchymosis continued to the right knee. As a precaution patient was discharged with Keflex 500 mg 1 tab p.o. 4 times daily #20 tablets. The dressings were changed. Discharge Temperature: 98.7 Discharge White Blood Cell Count: 7.6 Discharge Hemoglobin: 9.1 The patient was discharged to [facility]. Tegaderm with pad also provided for patient. Instructions given on how to use to keep wound dry while showering. Patient may discontinue use of Tegaderm with pad after kinsey have been removed around 10 days postoperatively. Continue with Keflex for 7 days as instructed on prescription. The patient will be seen in office at scheduled postoperative evaluation date given on their preoperative exam. Should patient complain of any problems prior to scheduled postoperative evaluation date, they may call into outpatient clinic to determine if they need to be scheduled at sooner appointment to be seen immediately if needed. Discharge medications: As per medication reconciliation form Diet: Same as preadmission diet. This is Laina Dupree PA-C dictating discharge summary for Dr. Vadim Blank. Home Meds Reported Medications Cholecalciferol (Vitamin D3) (Vitamin D-3) 2,000 Unit Tablet, 2000 UNIT PO DAILY , TAB 09/14/16 Losartan Potassium* (Losartan Potassium*) 50 Mg Tablet, 50 MG PO DAILY, TAB 09/14/16 Apixaban* (Eliquis*) 2.5 Mg Tablet, 2.5 MG PO BID, TAB 09/14/16 Lovastatin (Lovastatin) 40 Mg Tablet, 40 MG PO HS, TAB 09/14/16 Oxybutynin Chloride* (Oxybutynin Chloride*) 5 Mg/5 Ml Syrup, 5 MG PO BID, ML 09/14/16 Polyethylene Glycol* (Polyethylene Glycol*) 17 Gm Powd.pack, 17 GM PO DAILY, # 30 PACKET 09/14/16 Furosemide* (Furosemide*) 20 Mg Tablet, 20 MG PO DAILY, #60 TAB 09/14/16 Metoprolol Tartrate* (Lopressor*) 50 Mg Tab, 50 MG PO, #60 TAB 09/14/16 Folic Acid* (Folic Acid*) 1 Mg Tablet, 1 MG PO DAILY, TAB 09/14/16 Docusate Sodium* (Colace*) 100 Mg Capsule, 100 MG PO DAILY, #30 CAP 09/14/16 Amlodipine Besylate* (Amlodipine Besylate*) 10 Mg Tablet, 5 MG PO DAILY, #30 TAB 09/14/16 Follow-up Plan October 05, 2016 at 2:15 PM Primary Care Provider Not On Staff Doctor Pending Labs Laboratory Tests Test 09/17/16 04:35 White Blood Count 7.610^3/ul (4.8-10.8) Red Blood Count 3.3610^6/ul (4.20-5.40) Hemoglobin 9.1g/dl (12.0-16.0) Hematocrit 28.8% (37.0-47.0) Mean Corpuscular Volume 85.7fl (82.0-101.0) Mean Corpuscular Hemoglobin 27.1pg (29.0-33.0) Mean Corpuscular Hemoglobin Concent 31.6g/dl (32.0-37.0) Red Cell Distribution Width 16.4% (11.5-14.5) Platelet Count 00716^3/UL (140-415) Mean Platelet Volume 10.5fl (7.4-10.4) Neutrophils % 65.2% (39.0-77.0) Lymphocytes % 21.6% (15.0-51.0) Monocytes % 10.4% (0.0-11.0) Eosinophils % 1.5% (0.0-7.0) Basophils % 0.5% (0.0-2.0) Nucleated Red Blood Cells % 0.0/100WBC (0.0-0.0) Neutrophils # 4.910^3/ul (1.6-7.5) Lymphocytes # 1.610^3/ul (0.8-2.9) Monocytes # 0.810^3/ul (0.3-0.9) Eosinophils # 0.110^3/ul (0.0-0.5) Basophils # 0.010^3/ul (0.0-0.1) Nucleated Red Blood Cells # 0.010^3/ul (0.0-0.0) LAINA VINSON PA-C Sep 17, 2016 09:58
[2016-09-17 15:22] VITALS: BP 119/78; PULSE 93; RESP 18
[~2016-09-17 15:25] MED LIST: ACETAMINOPHEN 1000MG/100ML IV 100 ML IVPB ONE; AMLO-147 PO; APIX2.5T PO; ASPIRIN (EC) 325 MG TAB PO ONE; BACITRACIN 50000 UNITS INJ IRR ONE; BETHANECHOL 25 MG TAB PO PRN; BISACODYL 10 MG SUPP PR PRN; BUPIVACAINE 0.25%/EPI (SDV) 30 ML INJ INJ PRN; BUPIVACAINE 0.25%/EPI (SDV) 30 ML INJ ONE; BUPIVACAINE 0.5%/EPI (SDV) 30 ML INJ ONE; CELECOXIB 200 MG CAP PO ONE; CHOL20002 PO; COUMADIN NOTE XX SCH; DEXAMETHASONE 4 MG/ML 1 ML INJ IV ONE; DIPHENHYDRAMINE 50 MG INJ IM PRN; DIPHENHYDRAMINE 50 MG INJ IV PRN; DOCU-144 PO; DOCUSATE SODIUM 100 MG CAP PO ONE; DOCUSATE SODIUM 100 MG CAP PO SCH; EPHEDrine SULFATE 50 MG/5 ML SYG IV PRN; FOLI-49 PO; FURO20TA3 PO; HYDROmorphONE (0.2 MG/ML) 10ML SYG IV PRN; HYDROmorphONE 0.2 MG/ML PCA IV PRN; KETOROLAC 15 MG INJ INJ PRN; KNEE PAIN COCKTAIL VANCO INJ SCH; LABETALOL HCL 20MG INJ IV PRN; LACTATED RINGER'S 1,000 ML IV* SCH; LANSOPRAZOLE 30 MG CAP PO ONE; LIDOCAINE 2% (SDV) 5 ML INJ ONE; LOSA50TA6 PO; MAGNESIUM HYDROXIDE 30ML CUP PO PRN; MEPERIDINE 10 MG/ML 30 ML PCA IV PRN; MEPERIDINE 25 MG INJ IV PRN; METHYLENE BLUE 1% 10 ML INJ ONE; METO-429 PO; METOCLOPRAMIDE 10 MG INJ IV PRN; MEVA40 PO; MIDAZOLAM 1 MG/ML 2 ML INJ IV PRN; NA PHOSPHATE/BIPHOS 133 ML ENEMA PR PRN; NALOXONE (0.4 MG/ML) INJ IV PRN; ONDANSETRON 4 MG INJ IV ONE; ONDANSETRON 4 MG INJ IV PRN; OXYB5SYR2 PO; POLY17PO3 PO; POLYMYXIN B 500000 UNIT INJ ONE; PROPOFOL 20 ML ONE; ROPIVACAINE 0.2% 100 ML ONE; ROPIVACAINE 0.2% 100ML BAG INJ ONE; SENNA/DOCUSATE NA (8.6MG/50MG) TAB PO PRN; SOD CHLORIDE 0.9% IRR SCH; SOD CHLORIDE 0.9% IVPB ONE; TOBRAMYCIN 1.2 GM POWDER ONE; TRANEXAMIC ACID 670 MG in SOD CHLORIDE 0.9% 100 ML IVPB ONE; TRANEXAMIC ACID IRR SCH; TRANEXAMIC ACID IVPB ONE; VANCOMYCIN 1 GM (PMX) 250 ML IVPB ONE; VANCOMYCIN 1 GM INJ ONE; ZOLPIDEM 5 MG TAB PO PRN; hydrALAzine 20 MG INJ IV PRN; morphine (1 MG/ML) 10ML SYRINGE IV PRN; oxyCODONE (CR) 10 MG TAB [oxyCONTIN] PO ONE; oxyCODONE 5 MG TAB PO PRN
== END | DRG 470 ==
LOC: REC 09-14 05:22 → MS1 09-14 14:17
PROC: 0SRC0J9 Replacement of Right Knee Joint with Synthetic Substitute, Cemented, Open Approach (ICD-10-PCS; principal; 2016-09-14 07:30)
DX: M17.11 Unilateral primary osteoarthritis, right knee (principal); N39.0 Urinary tract infection, site not specified; I10 Essential (primary) hypertension; E78.5 Hyperlipidemia, unspecified; N39.41 Urge incontinence; R60.9 Edema, unspecified; Z86.711 Personal history of pulmonary embolism
CPT/HCPCS: 73560; 85025; 86850; 86900; 86901; 86920; 88304; 88311; 97110; 97116; 97162; 97167; 97530; C1776; J0131; J0690; J0735; J1100; J1885; J2274; J2405; J2795; J3370; J7120; J7121

== ENCOUNTER → 2016-10-05 | Outpatient (CLI) | payer MEDICARE, OTHER ==
[~2016-10-05] MED LIST changes: -ACETAMINOPHEN 1000MG/100ML IV 100 ML IVPB ONE; -ASPIRIN (EC) 325 MG TAB PO ONE; -BACITRACIN 50000 UNITS INJ IRR ONE; -BETHANECHOL 25 MG TAB PO PRN; -BISACODYL 10 MG SUPP PR PRN; -BUPIVACAINE 0.25%/EPI (SDV) 30 ML INJ INJ PRN; -BUPIVACAINE 0.25%/EPI (SDV) 30 ML INJ ONE; -BUPIVACAINE 0.5%/EPI (SDV) 30 ML INJ ONE; -CELECOXIB 200 MG CAP PO ONE; -COUMADIN NOTE XX SCH; -DEXAMETHASONE 4 MG/ML 1 ML INJ IV ONE; -DIPHENHYDRAMINE 50 MG INJ IM PRN; -DIPHENHYDRAMINE 50 MG INJ IV PRN; -DOCUSATE SODIUM 100 MG CAP PO ONE; -DOCUSATE SODIUM 100 MG CAP PO SCH; -EPHEDrine SULFATE 50 MG/5 ML SYG IV PRN; -HYDROmorphONE (0.2 MG/ML) 10ML SYG IV PRN; -HYDROmorphONE 0.2 MG/ML PCA IV PRN; -KETOROLAC 15 MG INJ INJ PRN; -KNEE PAIN COCKTAIL VANCO INJ SCH; -LABETALOL HCL 20MG INJ IV PRN; -LACTATED RINGER'S 1,000 ML IV* SCH; -LANSOPRAZOLE 30 MG CAP PO ONE; -LIDOCAINE 2% (SDV) 5 ML INJ ONE; -MAGNESIUM HYDROXIDE 30ML CUP PO PRN; -MEPERIDINE 10 MG/ML 30 ML PCA IV PRN; -MEPERIDINE 25 MG INJ IV PRN; -METHYLENE BLUE 1% 10 ML INJ ONE; -METOCLOPRAMIDE 10 MG INJ IV PRN; -MIDAZOLAM 1 MG/ML 2 ML INJ IV PRN; -NA PHOSPHATE/BIPHOS 133 ML ENEMA PR PRN; -NALOXONE (0.4 MG/ML) INJ IV PRN; -ONDANSETRON 4 MG INJ IV ONE; -ONDANSETRON 4 MG INJ IV PRN; -POLYMYXIN B 500000 UNIT INJ ONE; -PROPOFOL 20 ML ONE; -ROPIVACAINE 0.2% 100 ML ONE; -ROPIVACAINE 0.2% 100ML BAG INJ ONE; -SENNA/DOCUSATE NA (8.6MG/50MG) TAB PO PRN; -SOD CHLORIDE 0.9% IRR SCH; -SOD CHLORIDE 0.9% IVPB ONE; -TOBRAMYCIN 1.2 GM POWDER ONE; -TRANEXAMIC ACID 670 MG in SOD CHLORIDE 0.9% 100 ML IVPB ONE; -TRANEXAMIC ACID IRR SCH; -TRANEXAMIC ACID IVPB ONE; -VANCOMYCIN 1 GM (PMX) 250 ML IVPB ONE; -VANCOMYCIN 1 GM INJ ONE; -ZOLPIDEM 5 MG TAB PO PRN; -hydrALAzine 20 MG INJ IV PRN; -morphine (1 MG/ML) 10ML SYRINGE IV PRN; -oxyCODONE (CR) 10 MG TAB [oxyCONTIN] PO ONE; -oxyCODONE 5 MG TAB PO PRN
--- NOTE | 2016-10-05 15:59 | PN ---
Date/Time of Note Date/Time of Note DATE: 10/05/16 TIME: 15:48 Outpatient Progress Note Chief Complaint 3 week follow-up status post right total knee replacement HPI 86-year-old female presents today for three-week follow-up status post right total knee replacement on 09/15/2015. Patient denies any pain at rest. Patient explains that she is having pain typically with physical therapy. Stiffness to the right knee which is ongoing in regards to flexion and extension. Denies any chest pain/tightness. Denies any calf pain. Patient is currently being monitored at [facility]. Denies any falls. Uses walker for assisted ambulation and weightbearing. Review of Systems Const: No Fever, no chills, no Fatigue, normal appetite, no diaphoresis. Resp: No SOB, no wheezing, no chest pain. CV: No chest pain, no palpitaions, no POOLE. Physical Exam Blood pressure is 109/50, temperature is 98.2, pulse is 85, respiratory rate is 12, height is 5 foot 9 inches, weight is 159 pounds General Appearance: well-developed, well-nourished, in no acute distress. Right knee: Surgical wound is clean dry and intact and healing well. Rachele have been removed and Steri-Strips applied. There remains Steri-Strips on the proximal and distal third of the wound. Patient is able to extend with about 15 lag from full extension. She is able to flex up to 75-80 on exam today. Normal sensory examination to light touch. Negative Homans sign. Patient also continues with edema to the right lower extremity. Allergies Coded Allergies: No Known Allergy (Unverified , 09/09/16) Assessment/Plan * Lengthy discussion had with patient today. Dr. lBank was present for examination. Dr. Blank is called [facility] to determine why she is having significant pain with manipulation. When asked, patient states that she takes Tylenol only for pain management. After speaking with nurse directly at [facility] he saying that there seems to be some paperwork error where medications that were prescribed for postoperative pain management are not in order sheet. Prescriptions were provided for the patient as copies are in her chart in this office. Resolution was achieved as new orders for Bandon 10/325 mg 1 tab p.o. every 4-6 hours as needed pain as well as instructions to take 1 hour before physical therapy, Celebrex 100 mg 1 tab p.o. twice daily, and gabapentin 100 mg 1 tab p.o. twice daily were placed in the order sheets for [facility] nursing [facility]. * Written prescription was also provided for the patient today in regards to Bandon 10/325 mg 1 tab p.o. every 4-6 hours as needed for pain #90 tablets, gabapentin 100 mg 1 tab p.o. twice daily #60 tablets and Celebrex 100 mg 1 tab p.o. twice daily #60 tablets for when patient is discharged from [facility] and at home so she may also have continuing pain management. * Continue ongoing wound care is wound looks great with no signs of any complications. * [facility] to improve range of motion. Dr. Blank did discuss possibility of manipulation under anesthesia should she develop significant scarring with stiffness and rigidity to the knee. * Patient will follow-up in 2-3 weeks for repeat evaluation and range of motion check as well as x-rays. Dr. Blank was present for examination and agrees with plan. Medications Home Meds Reported Medications Cholecalciferol (Vitamin D3) (Vitamin D-3) 2,000 Unit Tablet, 2000 UNIT PO DAILY , TAB 09/14/16 Losartan Potassium* (Losartan Potassium*) 50 Mg Tablet, 50 MG PO DAILY, TAB 09/14/16 Apixaban* (Eliquis*) 2.5 Mg Tablet, 2.5 MG PO BID, TAB 09/14/16 Lovastatin (Lovastatin) 40 Mg Tablet, 40 MG PO HS, TAB 09/14/16 Oxybutynin Chloride* (Oxybutynin Chloride*) 5 Mg/5 Ml Syrup, 5 MG PO BID, ML 09/14/16 Polyethylene Glycol* (Polyethylene Glycol*) 17 Gm Powd.pack, 17 GM PO DAILY, # 30 PACKET 09/14/16 Furosemide* (Furosemide*) 20 Mg Tablet, 20 MG PO DAILY, #60 TAB 09/14/16 Metoprolol Tartrate* (Lopressor*) 50 Mg Tab, 50 MG PO, #60 TAB 09/14/16 Folic Acid* (Folic Acid*) 1 Mg Tablet, 1 MG PO DAILY, TAB 09/14/16 Docusate Sodium* (Colace*) 100 Mg Capsule, 100 MG PO DAILY, #30 CAP 6/27/17 Amlodipine Besylate* (Amlodipine Besylate*) 10 Mg Tablet, 5 MG PO DAILY, #30 TAB 09/14/16 LAINA VINSON PA-C Oct 05, 2016 15:58
== END | disposition home or self-care (01) ==
LOC: HKI 13:48
DX: Z47.1 Aftercare following joint replacement surgery (principal); Z96.651 Presence of right artificial knee joint

== ENCOUNTER → 2016-10-26 | Outpatient (CLI) | payer MEDICARE, OTHER ==
--- NOTE | 2016-10-26 14:24 | PN ---
Date/Time of Note Date/Time of Note DATE: 10/26/16 TIME: 14:20 Outpatient Progress Note Chief Complaint 6 week postop right total knee replacement HPI 86-year-old female presents today for 6 week postoperative appointment status post right total knee replacement on 09/14/2016. Patient was recently discharged from [facility] 1 week ago. Patient denies any pain to the right knee. Denies any fall or injury since she was last seen. Denies any calf pain, chest pain/tightness or shortness of breath. She does have increased swelling to the right knee. Since discharge, she has been having low blood pressure as she states that the primary that was following her after surgery increase her antihypertensive medications. She is on 3 separate medications currently for high blood pressure. Blood pressure is stable today, per patient account. Denies any episodes of syncope. In regards to the knee she is very pleased status post surgery as she states that her range of motion is significantly improved and she is gradually returning to normal functionality. Review of Systems Const: No Fever, no chills, no Fatigue, normal appetite, no diaphoresis. Resp: No SOB, no wheezing, no chest pain. CV: No chest pain, no palpitaions, no POOLE. Physical Exam General Appearance: well-developed, well-nourished, in no acute distress. Right knee: Surgical wound to the right knee is healing well with good scarring. No tenderness to palpation. Increased edema to the right lower extremity compared to the left. Negative Homans sign. Patient is able to actively flex up to 100. When patient is lying supine with the leg elevated she is able to passively flex up to 120 with discomfort once 120 is reached. Full extension with active and passive range of motion. Patient is able to rise to a standing position with help using a front wheeled walker. Patient is able to use front wheeled walker and denies any pain with ambulation. 4+/5 strength on resistance with flexion and extension. Imaging X-ray of the right knee performed on 10/26/2016 showing all components appearing well aligned, attached and integrated to the bone. No signs of any lucency between metal and bone. Reviewed with Dr. Blank today. Allergies Coded Allergies: No Known Allergy (Unverified , 09/09/16) Assessment/Plan -Patient progressing well -Surgical wound continues to heal well. -No signs of infection or DVT on exam. -X-rays showing no abnormalities in regards to prosthesis attachment to bone. -Range of motion is improved status post total knee replacement. -Antibiotic prophylaxis card provided today. -Follow-up 6 months status post surgery. If patient is doing well at that time , possible follow-up on as-needed basis from that point. Dental prophylaxis discussed in detail today. Patient given prophylaxis card with antibiotic options. Should patient have allergy to specific medication ( eg penicillin) alternative options are also provided on the card. Patient is aware that antibiotics should be taken prior to any procedures to prevent increased risk of infection to the joint. Patient is aware that this will be for the rest of their life. Patient states understanding and compliance. Patient has appointment set up with primary care practitioner, Dr. Larose for adjustment of antihypertensive medications. Patient was advised to return to antihypertensive therapy that she was on prior to surgery, per instructions from Dr. Blank as triple antihypertensive therapy has been creating significant hypotension episodes and dizziness. Dr. Blank was present for examination today and agrees with plan. Medications Home Meds Reported Medications Cholecalciferol (Vitamin D3) (Vitamin D-3) 2,000 Unit Tablet, 2000 UNIT PO DAILY , TAB 09/14/16 Losartan Potassium* (Losartan Potassium*) 50 Mg Tablet, 50 MG PO DAILY, TAB 09/14/16 Apixaban* (Eliquis*) 2.5 Mg Tablet, 2.5 MG PO BID, TAB 09/14/16 Lovastatin (Lovastatin) 40 Mg Tablet, 40 MG PO HS, TAB 09/14/16 Oxybutynin Chloride* (Oxybutynin Chloride*) 5 Mg/5 Ml Syrup, 5 MG PO BID, ML 09/14/16 Polyethylene Glycol* (Polyethylene Glycol*) 17 Gm Powd.pack, 17 GM PO DAILY, # 30 PACKET 09/14/16 Furosemide* (Furosemide*) 20 Mg Tablet, 20 MG PO DAILY, #60 TAB 09/14/16 Metoprolol Tartrate* (Lopressor*) 50 Mg Tab, 50 MG PO, #60 TAB 09/14/16 Folic Acid* (Folic Acid*) 1 Mg Tablet, 1 MG PO DAILY, TAB 09/14/16 Docusate Sodium* (Colace*) 100 Mg Capsule, 100 MG PO DAILY, #30 CAP 09/14/16 Amlodipine Besylate* (Amlodipine Besylate*) 10 Mg Tablet, 5 MG PO DAILY, #30 TAB 09/14/16 LAINA VINSON PA-C Oct 26, 2016 14:24
--- NOTE | 2016-10-26 17:14 | RADRPT ---
PROCEDURE: Right knee radiographs. CLINICAL INDICATION: Right knee pain. Postop. TECHNIQUE: Three views. Weight bearing. Frontal, lateral, and patellar view. COMPARISON: No prior studies are available for comparison. FINDINGS: There is no fracture or dislocation. Anterior skin kinsey and surgical drains have been removed. There is a total right knee arthroplasty which appears satisfactory. There is no lytic or blastic lesion. There is no joint effusion. IMPRESSION: 1. Satisfactory postoperative appearance of the right knee. RPTAT: QQ .Neto Sharma MD, MD Date Time Electronically viewed and signed by .Neto Sharma MD, on 10/26/2016 17:14 .R/
== END | disposition home or self-care (01) ==
LOC: HKI 13:38
DX: Z47.1 Aftercare following joint replacement surgery (principal); Z96.651 Presence of right artificial knee joint

== ENCOUNTER → 2016-12-22 | Outpatient (CLI) | payer MEDICARE, OTHER ==
--- NOTE | 2016-12-22 11:29 | PN ---
Date/Time of Note Date/Time of Note DATE: 12/22/16 TIME: 11:18 Outpatient Progress Note Chief Complaint Status post right total knee replacement HPI 86-year-old female presents today for three-month follow-up status post right total hip replacement on 09/14/2016. In regards to pain, she has no complaints today. Patient states that she has improved range of motion but she has concerned and she feels that she might have allergy to metal. When asked why she feels that she has allergy she states that she has had swelling to her right lower extremity. Prior to surgery patient did have bilateral lower extremity edema. She feels that the swelling is worse. Denies any associated pain, redness, discharge. Surgical wound has been healing well and she has had no complaints. She does also feel like she has some weakness with weightbearing as she is using her walker.Patient states that she has been seen by Dr. Estevez who ordered Doppler which was negative for DVT. Dr. Estevez is placed patient on furosemide. Review of Systems Const: No Fever, no chills, no Fatigue, normal appetite, no diaphoresis. Resp: No SOB, no wheezing, no chest pain. CV: No chest pain, no palpitaions, no POOLE. Physical Exam Blood pressure is 136/95, temperature is 97.6, pulse is 103, respiratory rate is 12, height is 5 foot 9 inches, weight is 159 pounds General Appearance: well-developed, well-nourished, in no acute distress. Right knee: Well-healed surgical scar to the right knee. No redness or erythema. No tenderness to palpation. Patient is able to fully extend and flex up to 125 on exam today. About 4+/5 strength with resistance on flexion and extension. Gait is abnormal as she uses front wheeled walker for assisted ambulation. Denies any pain with weightbearing. Negative Homans sign. Allergies Coded Allergies: No Known Allergy (Unverified , 09/09/16) Assessment/Plan Problems: (1) Status post total right knee replacement * Range of motion has significantly improved since [facility]. * Lengthy discussion was had with patient and Dr. Blank regarding her fear of allergy to metal prosthesis. Dr. Blank has assured the patient that there is no suspected allergy to the prosthesis given patient's symptoms especially since that they are off and on and usually allergic type symptoms are constant in nature. * Continue with strengthening to the right knee. Patient made aware that she is 86 and therefore she does have pre-existing weakness to the bones and joints which may also be contributing to difficulty with weightbearing independently as she was using walker prior to surgery as well. Patient states that she is very pleased status post surgery as she has noticed that her pain is significantly improved. * Follow-up in 3 months for repeat evaluation. Dr. Blank was present for examination and agrees with plan. Medications Home Meds Reported Medications Cholecalciferol (Vitamin D3) (Vitamin D-3) 2,000 Unit Tablet, 2000 UNIT PO DAILY , TAB 09/14/16 Losartan Potassium* (Losartan Potassium*) 50 Mg Tablet, 50 MG PO DAILY, TAB 09/14/16 Apixaban* (Eliquis*) 2.5 Mg Tablet, 2.5 MG PO BID, TAB 09/14/16 Lovastatin (Lovastatin) 40 Mg Tablet, 40 MG PO HS, TAB 09/14/16 Oxybutynin Chloride* (Oxybutynin Chloride*) 5 Mg/5 Ml Syrup, 5 MG PO BID, ML 09/14/16 Polyethylene Glycol* (Polyethylene Glycol*) 17 Gm Powd.pack, 17 GM PO DAILY, # 30 PACKET 09/14/16 Furosemide* (Furosemide*) 20 Mg Tablet, 20 MG PO DAILY, #60 TAB 09/14/16 Metoprolol Tartrate* (Lopressor*) 50 Mg Tab, 50 MG PO, #60 TAB 09/14/16 Folic Acid* (Folic Acid*) 1 Mg Tablet, 1 MG PO DAILY, TAB 09/14/16 Docusate Sodium* (Colace*) 100 Mg Capsule, 100 MG PO DAILY, #30 CAP 09/14/16 Amlodipine Besylate* (Amlodipine Besylate*) 10 Mg Tablet, 5 MG PO DAILY, #30 TAB 09/14/16 LAINA VINSON PA-C Dec 22, 2016 11:29
== END | disposition home or self-care (01) ==
LOC: HKI 10:34
DX: M25.561 Pain in right knee (principal); Z96.651 Presence of right artificial knee joint; Z09 Encounter for follow-up examination after completed treatment for conditions other than malignant neoplasm
CPT/HCPCS: G0463